=== PATIENT | male | born 1970 | race Caucasian/White ===

== ENCOUNTER 2023-03-14 20:40 | Emergency (ER) | payer SELFPAY ==
[~2023-03-14] VITALS: Ht 188 cm; Wt 124.7 kg
[2023-03-14 20:51] VITALS: BP 136/77
[2023-03-14] MEDS ORDERED: TETRACAINE HCL/PF 0.5% OPTH 4 ML BTL OP ONE (22:10)
[2023-03-14] MEDS ORDERED: FLUORESCEIN OPTH STRIP 1 MG OP ONE (22:10)
[2023-03-14] MEDS ORDERED: TOMOMETER 1 DEV DEV MC ONE (22:15)
--- NOTE | 2023-03-14 22:15 | NUR ---
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 PMH: DENIES ALLERGY: DENIES
[2023-03-14] MEDS ORDERED: IBUPROFEN 600 MG TAB PO ONE (22:40)
--- NOTE | 2023-03-14 22:45 | NUR ---
PATIENT HAD BEDSIDE EXAM DONE WITH WOOD[employer]S [employer]AMP C/O DR. YU
[2023-03-15] MEDS ORDERED: OFLO5SOL OP (00:03)
[2023-03-15] MEDS ORDERED: ACET-8905 PO (00:03)
[2023-03-15] MEDS ORDERED: IBUP-1842 PO (00:03)
--- NOTE | 2023-03-15 00:15 | NUR ---
Patient discharged with v/s stable. Written and verbal after care instructions given and explained. Patient alert, oriented and verbalized understanding of instructions. Ambulatory with steady gait. All questions addressed prior to discharge. ID band removed. Patient advised to follow up with PMD. Rx of HYDROCODON-ACETAMINOPHEN, MOTRIN and OCUFLOX given. Patient educated on indication of medication including possible reaction and side effects. Opportunity to ask questions provided and answered.
== END 2023-03-15 00:15 | disposition home or self-care (01) ==
LOC: MED 20:40
DX: T15.01XA Foreign body in cornea, right eye, initial encounter (principal); X58.XXXA Exposure to other specified factors, initial encounter; Y93.89 Activity, other specified; Y92.89 Other specified places as the place of occurrence of the external cause; Y99.8 Other external cause status
CPT/HCPCS: 65220; 99284